=== PATIENT | female | born 1985 | race Caucasian/White ===

== ENCOUNTER 2018-02-04 17:57 | Observation (INO) | payer OTHER, SELFPAY ==
[2018-02-04] MEDS ORDERED: Adacel (T-DAP) 0.5 ML VIAL ONE ×2 (18:13→20:04)
[2018-02-04] MEDS ORDERED: Ketorolac Tromethamine 30 MG/ML VIAL ONE (18:31)
--- NOTE | 2018-02-04 19:39 | RAD ---
THREE VIEWS LEFT SHOULDER: History: Post-traumatic pain. FINDINGS: There is no evidence of fracture or dislocation of the left shoulder. There are extrinsic artifact li miting detail. IMPRESSION: No acute osseous abnormality of the left shoulder. POS: [facility]
--- NOTE | 2018-02-04 20:05 | RAD ---
FOUR VIEW CERVICAL SPINE: Clinical history: Post-traumatic pain. FINDINGS: On the lateral view the cervical spine is visualized to the mid C7 level. No obvious malalignment. Ce rvical spine demonstrates straightened alignment. There is no compression fracture. The lateral ashish s of C1 are appropriately aligned. The dens is partially obscured which limits assessment. IMPRESSION: Straightened cervical spine alignment without obvious subluxation. No compression deformity. POS: [facility]
[2018-02-04] MEDS ORDERED: Morphine 4 MG/ML VIAL ONE ×2 (20:37→22:58)
--- NOTE | 2018-02-04 20:51 | RAD ---
RIGHT FOREARM THREE VIEWS: History: Post-traumatic pain, edema, deformity of right wrist. FINDINGS: There is a comminuted displaced intraarticular fracture of the distal radius. There is associated ant erior dislocation of the major distal fracture fragment with associated dislocation of the radial car pal articulation. Ulnar styloid avulsion is present. There is edema of the distal forearm and right w rist region. IMPRESSION: 1. Comminuted displaced intraarticular distal radial fracture with disruption of the radial carpal ar ticulation. 2. Ulnar styloid avulsion. 3. Recommend orthopedic consultation. Findings conveyed via telephone to Emergency Department physician, Luis Duong D.O., at time of dictation. Code CR POS: [facility]
[2018-02-04] MEDS ORDERED: PROPOFOL 20 ML ONE (22:16)
[2018-02-04] MEDS ORDERED: Ondansetron ODT 4 MG TAB ONE (23:04)
[2018-02-04] MEDS ORDERED: Ondansetron HCl/PF 4 MG/2 ML Vial ONE (23:07)
--- NOTE | 2018-02-04 23:28 | RAD ---
LEFT WRIST THREE VIEWS: Indication: Post reduction. FINDINGS: There has been placement of overlying splint. Fracture deformity of the distal radius and ulnar stylo id again seen. There has been improved alignment. Details limited with overlying artifact. IMPRESSION: Status post reduction of distal radial fracture with overlying splint material. POS: [facility]
[2018-02-05 00:15] LABS: #Eosinphils 0.1 thou/uL (0.0-0.7); #Lymphocytes 2.3 thou/uL (1.20-3.40); #Monocytes 0.8 thou/uL (0.11-0.59); #Neutrophils 4.8 thou/uL (1.40-6.50); %Basophils 0.2 % (0.0-1.0); %Eosinophils 1.2 % (0.0-10.0); %Lymphocytes 28.4 % (21.0-51.0); %Monocytes 10.5 % (0.0-10.0); %Neutrophils 59.7 % (42.0-75.0); Hemoglobin 12.4 g/dL (12.0-16.0); Mean Corpuscular HGB CONC 33.5 g/dL (32.0-36.0); Mean Corpuscular Hemoglobin 31.4 pg (27.0-31.0); Mean Corpuscular Volume 93.8 fl (81.0-99.0); Mean Platelet Volume 8.2 fL (7.4-10.4); Platelet Count 254 thou/uL (130-400); RBC Distribution Width 12.7 % (11.5-14.5); Red Blood Cell (RBC) Count 3.95 mill/uL (4.20-5.40)
[2018-02-05 00:29] LABS: Anion Gap 14 mmol/L (10-20); BUN (Urea Nitrogen) 9 mg/dL (7.0-18.7); Calc. Creatinine Clearance 0 mL/min (70-130); Calcium 8.7 mg/dL (7.8-10.44); Carbon Dioxide 20 mmol/L (22-29); Chloride 107 mmol/L (98-107); Estimated GFR-MDRD Greater than 90; Glucose 94 mg/dL (70-105); Sodium 137 mmol/L (136-145)
[2018-02-05] MEDS ORDERED: Ondansetron ODT 4 MG TAB SL PRN (00:43)
[2018-02-05] MEDS ORDERED: Ondansetron HCl/PF 4 MG/2 ML Vial IVP PRN ×3 (00:43→11:48)
[2018-02-05] MEDS ORDERED: Acetaminophen 325 MG TAB PO PRN (00:43)
[2018-02-05] MEDS ORDERED: Dextrose 50% Abboject 50 ML SYRINGE SLOW IVP PRN (00:44)
[2018-02-05] MEDS ORDERED: Dextrose 5% in Water 1,000 ML IV PRN (00:44)
[2018-02-05] MEDS: Sodium Chloride 0.9% 1,000 ML IV SCH ×2 (01:10→11:32)
[2018-02-05 01:15] LABS: Magnesium 1.9 mg/dL (1.6-2.6); Phosphorus 2.9 mg/dL (2.3-4.7)
[2018-02-05 01:31] VITALS: BMI 26.2
[2018-02-05] MEDS: Morphine 4 MG/ML VIAL SLOW IVP PRN ×4 (04:10→21:21)
[2018-02-05] MEDS ORDERED: CEFAZOLIN/Water 2 GM/20 ML SYRINGE SLOW IVP SCH (09:00)
[2018-02-05] MEDS: Famotidine/PF 20 mg/2ml Vial SLOW IVP SCH ×2 (09:00→20:05)
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
[2018-02-05] MEDS ORDERED: CEFAZOLIN/Water 2 GM/20 ML SYRINGE ONE (09:38)
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
[2018-02-05] MEDS ORDERED: Fentanyl 100 MCG/2 ML VIAL ONE ×3 (10:06→12:38)
[2018-02-05] MEDS ORDERED: Bupivacaine/Epinephrine 0.25% 30 ML VIAL ONE (11:30)
[2018-02-05] MEDS ORDERED: Meperidine HCl/PF 25 MG/ML VIAL SLOW IVP PRN (11:48)
[2018-02-05] MEDS ORDERED: Promethazine HCl 25 MG/ML VIAL SLOW IVP PRN (11:48)
[2018-02-05] MEDS ORDERED: Promethazine HCl 25 MG/ML VIAL IM PRN (11:48)
[2018-02-05] MEDS ORDERED: HYDROcodone/Acetaminophen 5/325 mg Tablet PO PRN (12:11)
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
--- NOTE | 2018-02-05 13:42 | RAD ---
INTRAOPERATIVE IMAGING OF THE LEFT WRIST: DATE: 02/05/18. COMPARISON: 02/04/18. HISTORY: Fracture of the radius status post ORIF. FINDINGS: The previously noted comminuted distal radial fracture has been treated with a volar screw and plate fixation. There is anatomic alignment at the fracture site. There is an obliquely oriented fracture involving the ulnar styloid. IMPRESSION: Open reduction and internal fixation as described above. POS: [facility]
[2018-02-05] MEDS ORDERED: Lidocaine 1% PF 5 ML VIAL ONE (15:45)
[2018-02-05] MEDS ORDERED: Dexamethasone 20 MG/5 ML VIAL ONE (15:45)
[2018-02-05] MEDS ORDERED: Ondansetron HCl/PF 4 MG/2 ML Vial ONE (15:45)
[2018-02-05] MEDS: HYDROcodone/Acetaminophen 5/325 mg Tablet PO PRN ×2 (15:45→20:04)
[2018-02-05] MEDS ORDERED: PROPOFOL 200 MG/20 ML VIAL ONE (15:45)
[2018-02-05] MEDS ORDERED: Ketorolac Tromethamine 30 MG/ML VIAL ONE (15:45)
[2018-02-06] MEDS: HYDROcodone/Acetaminophen 5/325 mg Tablet PO PRN ×3 (00:01→11:00)
[2018-02-06] MEDS: Morphine 4 MG/ML VIAL SLOW IVP PRN ×2 (01:28→07:04)
[2018-02-06] MEDS: Famotidine/PF 20 mg/2ml Vial SLOW IVP SCH (08:18)
[2018-02-06] MEDS: Docusate 100 MG CAP PO SCH ×2 (09:58→20:15)
[2018-02-06] MEDS ORDERED: traMADol HCl 50 MG TAB PO PRN (13:35)
[2018-02-06] MEDS: Ibuprofen 600 MG TAB PO SCH ×2 (15:09→20:15)
[2018-02-06] MEDS ORDERED: HYDROcodone/Acetaminophen 7.5/325 mg Tablet PO SCH (15:45)
[2018-02-06] MEDS ORDERED: Acetaminophen 325 MG TAB PO SCH (17:00)
[2018-02-06] MEDS ORDERED: HYDROcodone/Acetaminophen 10/325 mg Tablet PO PRN (17:19)
[2018-02-06] MEDS ORDERED: traMADol HCl 50 MG TAB PO SCH (18:00)
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
[2018-02-06] MEDS: Gabapentin 300 MG CAP PO SCH (20:15)
[2018-02-06] MEDS: HYDROcodone/Acetaminophen 10/325 mg Tablet PO PRN (20:18)
[2018-02-07] MEDS: HYDROcodone/Acetaminophen 10/325 mg Tablet PO PRN ×4 (00:23→13:03)
[2018-02-07] MEDS: Ibuprofen 600 MG TAB PO SCH ×2 (05:06→13:44)
[2018-02-07] MEDS: Gabapentin 300 MG CAP PO SCH (08:52)
[2018-02-07] MEDS: Docusate 100 MG CAP PO SCH (08:53)
[2018-02-07 11:57] VITALS: BP 122/80; TEMP 97.8
--- NOTE | 2018-02-07 14:37 | EKG ---
Test Reason : ER INDICATION Blood Pressure : / mmHG Vent. Rate : 084 BPM Atrial Rate : 084 BPM P-R Int : 144 ms QRS Dur : 072 ms QT Int : 386 ms P-R-T Axes : 072 052 048 degrees QTc Int : 456 ms Normal sinus rhythm Normal ECG Confirmed by JM PÉREZ MD ([id number]), brands editor TIGRE MOISE ([id number] on 02/07/2018 2:36:21 PM Referred By: Confirmed By:JM PÉREZ MD
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
== END 2018-02-07 14:11 | disposition home or self-care (01) ==
LOC: ERS 17:57 → SURG A 23:16
PROVIDERS: ADMIT Surgery; ATTEND Surgery
PROC: 0PSJ04Z Reposition Left Radius with Internal Fixation Device, Open Approach (ICD-10-PCS; principal; 2018-02-07)
DX: S52.572A Other intraarticular fracture of lower end of left radius, initial encounter for closed fracture (principal); G89.11 Acute pain due to trauma; T14.8XXA Other injury of unspecified body region, initial encounter; S52.612A Displaced fracture of left ulna styloid process, initial encounter for closed fracture; Z79.899 Other long term (current) drug therapy; Z91.018 Allergy to other foods; Z88.8 Allergy status to other drugs, medicaments and biological substances; V29.50XA Motorcycle passenger injured in collision with unspecified motor vehicles in traffic accident, initial encounter
CPT/HCPCS: 25605; 72040; 76001; 80048; 83735; 84100; 85025; 90471; 90715; 93005; 96361; 96374; 96375; 96376; 99152; C1713; G0378; G0390; J0131; J1100; J1885; J2001; J2270; J2405; J2704; J3010; Q0162; S0028